=== PATIENT | female | born 2000 | race Caucasian/White ===

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

== ENCOUNTER → 2018-01-02 05:42 | Observation (INO) ==
--- NOTE | 2018-01-02 04:03 | OB/GYN Progress Note ---
Date of Encounter: 01/02/18 Time of Encounter: 04:00 - Assessment and Plan (1) 37 weeks gestation of Current Visit: Yes Status: Acute admitted for observation for labor evaluation (2) NST (non-stress test) reactive Current Visit: No Status: Acute baseline 125 bpm moderate variability +15x15 accels no decels noted. Occasional contractions noted. Cat. 1 tracing. Subjective - Subjective Principal diagnosis: contractions in third trimester Interval history: Patient is a 17 y/o at 37w3d presents to labor and delivery with complaints of contractions since yesterday around 1700. Patient reports contractions to be about 5 min apart. Patient denies LOF or VB. Patient reports +FM. Patient also reports swelling in feet and hands. Antepartum ROS: movement normal, contractions, no loss of fluid, no vaginal bleeding Objective - Vital Signs Vital Signs: Intake and Output 01/01/18 01/01/18 01/02/18 15:59 23:59 07:59 Other: Weight 94.4 kg Patient Weight 01/02/18 23:59 Weight 94.4 kg - Exam FHR: auscultation normal, category 1 FHR comments: 125 bpm moderate variability +15x15 accels no decels noted. Cat. 1 tracing Auscultation: bilateral: normal Abdomen: Present: normal appearance, soft, gravid Uterus: Present: normal, firm Cervical dilation: 2 Cervix effacement: 70 station: -2 Comments: SVE per RN.
[2018-01-02 04:24] LABS: Amphetamine Screen,Urine Negative ng/mL (Cutoff=1000); Barbiturate Screen,Urine Negative ng/mL (Cutoff=200); Benzodiazepines Screen,Urine Negative ng/mL (Cutoff=200); Cannabinoid Screen,Urine Positive ng/mL (Cutoff = 50); Cocaine Screen,Urine Negative ng/mL (Cutoff= 300); Opiate Screen,Urine Negative ng/mL (Cutoff=300); Phencyclidine Screen,Urine Negative ng/mL (Cutoff=25)
== END | disposition home or self-care (01) ==
LOC: 1NENULAB
PROVIDERS: ADMIT Advanced Practice Midwife; ATTEND Advanced Practice Midwife

== ENCOUNTER 2018-01-06 03:36 | Inpatient (IN) ==
[~2018-01-06 03:36] MED LIST changes: +Famotidine 20 MG/2 ML VIAL IVP PRN; +Metoclopramide 10 MG/2 ML VIAL IVP PRN; +Naloxone 0.4 MG/ML INJ IVP PRN; +Ondansetron 4 MG/2 ML VIAL IVP PRN; -Ringers Solution, Lactated 1,000 ML ONE
[2018-01-06] MEDS ORDERED: Oxytocin 20 units/ LR 1000 mL 20 UNIT/1,000 ML BAG IVC SCH ×2 (03:45→09:48)
[2018-01-06] MEDS ORDERED: Ringers Solution, Lactated 1,000 ML IVC SCH (03:45)
[2018-01-06 03:53] LABS: Basophils % 0.3 %; Eosinophils # 0.1 K/mcL (0.0-0.6); Eosinophils % 0.7 %; Hematocrit 34.1 % (35.3-44.9); Hemoglobin 11.9 g/dL (11.5-15.4); Immature Granulocytes % 0.7 % (0-4); Lymphocytes # 2.5 K/mcL (0.6-4.6); Lymphocytes % 24.2 %; Mean Corpuscular HGB Conc 34.9 g/dL (31.6-35.5); Mean Corpuscular Hemoglobin 31.3 pg (28.0-33.3); Mean Corpuscular Volume 89.7 fL (83.0-100.0); Mean Platelet Volume 13.1 fL (9.4-12.4); Monocytes # 0.8 K/mcL (0.0-1.3); Monocytes % 7.5 %; Neutrophils # 6.9 K/mcL (1.6-8.9); Platelet Count 113 K/mcL (140-400); Red Cell Distribution Width 13.2 % (11.5-14.5); Segmented Neutrophils % 66.6 %
[2018-01-06 04:23] LABS: Amphetamine Screen,Urine Negative ng/mL (Cutoff=1000); Barbiturate Screen,Urine Negative ng/mL (Cutoff=200); Benzodiazepines Screen,Urine Negative ng/mL (Cutoff=200); Cannabinoid Screen,Urine Positive ng/mL (Cutoff = 50); Cocaine Screen,Urine Negative ng/mL (Cutoff= 300); Opiate Screen,Urine Negative ng/mL (Cutoff=300); Phencyclidine Screen,Urine Negative ng/mL (Cutoff=25)
[2018-01-06] MEDS: *HR* Nalbuphine 10 MG/ML AMPUL IVP PRN ×2 (04:48→06:53)
--- NOTE | 2018-01-06 06:15 | Anesthesia Evaluation PreOp ---
Date of Encounter: 01/06/18 Time of Encounter: 06:03 - Past History Planned Operation: labor epidural Cardiac History: Denies any Significant Hx Pulmonary History: Denies Any Significant HX HELIUM ARC WELDER History: Denies Any Significant HX Other Medical History: GERD, Other (diet-controlled gestational diabetes. Reports some "clotting disorder" , not sure what type, that she was prescribed baby ASA daily. Was diagnosed since last . was not aware of disorder at last /delivery. No complications during previous delivery. Hasn't taken baby ASA for "I don't know how long" .) Anesthesia History: No Prior Anesthetic Complications (has never had general anesthesia.No FHAP. Had previous epidural without complications.) : Yes Alcohol Use: none Drug use: none Medications and Allergies Pnv with Ca,No.72/Iron,Carb/FA [ Plus Iron Tablet] 1 each PO DAILY 01/06 [History] Aspirin 81 mg PO DAILY #30 tab.chew 07/19/17 [Rx] 3 Allergy/AdvReac Type Severity Reaction Status Date / Time No Known Allergies Allergy Verified 01/06/18 03:18 - Meds/Allergy Pre-op Review Medications Reviewed: Yes Allergies Reviewed: Yes Beta Blockers on Current Med List: No Anesthesia Results - Labs 01/06/18 03:40 Anesthesia Exam 109/62, 85, 16. FHTs 130s. Height: 5'2" Weight: 90 kg NPO (# of Hours): 0100 solids. Pain Scale: 7 Pain Scale Used: Numeric (1 - 10) - HEENT Pupil (Motor): Pupils equal, EOMI Mallampati: III Teeth: Normal Oral Opening: Greater than 3 - HELIUM ARC WELDER LOC: Oriented HELIUM ARC WELDER Motor: Normal RUE, Normal LUE, Normal RLE, Normal LLE, Normal Face HELIUM ARC WELDER Sensory: Normal: RUE, LUE, RLE, LLE, Face - Cardiac Rhythm: Regular - Pulmonary Breath Sounds: bilateral Clear Respiratory Effort: Symmetrical Anesthesia Assess/Plan ASA Score: 3 Modified Benjamín Scale for Level of Consciousness: Cooperative, oriented, and tranquil Anesthetic Plan: Regional Monitoring Plan: Standard Monitors Recovery Plan: PACU
[2018-01-06] MEDS ORDERED: Bupivacaine-MPF 0.25% 10 ML VIAL EP ONE (06:19)
[2018-01-06] MEDS ORDERED: *HR* FentaNYL (PF) 100 MCG/2 ML VIAL EP ONE (06:19)
[2018-01-06] MEDS ORDERED: Epidural Premix (fent/bupiv) 110 ML EP SCH (06:30)
--- NOTE | 2018-01-06 07:17 | OB/GYN History & Physical ---
Date of Encounter: 01/06/18 Time of Encounter: 07:12 Assessment and Plan (1) Spontaneous rupture of amniotic membranes Current visit: Yes Status: Acute Admit for labor Augment with pitocin Epidural when requested. Anticipate . (2) 38 weeks gestation of Current visit: No Status: Acute (3) MTHFR mutation Current visit: Yes Status: Acute SW consult (4) Marijuana use in remission Current visit: Yes Status: Acute (5) GDM, class A1 Current visit: Yes Status: Acute Pt reports good control with diet, EFW this week 7lbs History of Present Illness Chief complaint: SROM HPI: Ms. Martinez is a 17 year old female at 38 weeks gestation who presented to L&D after SROM at 0200 this am. She denies any other complaints. Good FM. This has been complicated by MTHFR for which she intermittently takes baby ASA. Other complications include GDMA1, marijuana use, and an accessory lobe placenta. Blood type B+ Rubella immune Serologies negative GBS negative Past Med Surg Social Fam HX - Past Medical History Medical history: GERD Additional medical history: clotting disorder Psychiatric history: anxiety, depression - Past Surgical History Surgical History: no surgical history - Social History Smoking Status: Never smoker Smokeless Tobacco Status: No Alcohol use: none Drug use: none - Family History Father Adopted: No Living Status: Still Living Hx Family Cardiac Disorders: Yes (HTN) Hx Family Respiratory Disorders: No Hx Family Cancer: No Hx Family GI Disorders: No Hx Family Endocrine Disorder: No Hx Family Neuromuscular Disorders: No Hx Family Neurologic Disorders: No Hx Family HEENT Disorders: No Hx Family Autoimmune Disorders: No Obstetrical History - Pregnancies : 2 Para: 1 Term: 1 : 0 Ab's: 0 Livin Medications and Allergies Pnv with Ca,No.72/Iron,Carb/FA [ Plus Iron Tablet] 1 each PO DAILY 01/06 [History] Aspirin 81 mg PO DAILY #30 tab.chew 07/19/17 [Rx] 3 Allergy/AdvReac Type Severity Reaction Status Date / Time No Known Allergies Allergy Verified 01/06/18 03:18 Review of System OB All systems PM: reviewed and no additional remarkable complaints except as stated Exam - Constitutional Constitutional: well developed, well nourished, moderate distress - HEENT HEENT: Mucus Membranes Moist - Lungs Respiratory exam: CTAB - Cardiovascular Cardiovascular exam: RRR, +S1, +S2 - Abdomen Abdomen: Present: gravid (EFW 7lbs by US this week), non tender - Extremities Extremities exam: normal inspection - Vulva Vulva: bilateral: normal - Anus/Rectum Anus/Rectum: Present: normal perianal skin Results Result Diagrams: 01/06/18 03:40 Abnormal lab results RBC 3.80 M/mcL (3.82-4.97) L 01/06/18 03:40 Hct 34.1 % (35.3-44.9) L 01/06/18 03:40 Plt Count 113 K/mcL (140-400) L 01/06/18 03:40 MPV 13.1 fL (9.4-12.4) H 01/06/18 03:40 U Marijuana (THC) Screen Positive ng/mL (Cutoff = 50) H 01/06/18 03:40 All other labs normal. - VTE Reasons for not Prescribing Prophylaxis: Treatment not Indicated - Low risk for VTE
[2018-01-06] MEDS ORDERED: Lidocaine -MPF 1% 5 ML AMPUL ONE (07:30)
[2018-01-06] MEDS ORDERED: Epidural Premix (fent/bupiv) 110 ML EP ONE (07:31)
--- NOTE | 2018-01-06 07:47 | Anesthesia Procedures ---
Date of Encounter: 01/06/18 Time of Encounter: 07:45 Procedures: Anesthesia - Epidural/Spinal Patient ID/Chart reviewed: Yes Patient examined: Yes OB Eval: Gestational age: term OB Eval: : 2 OB Eval: Hx Para: 1 OB Eval: Contractions: Non-stressed pattern Consent Obtained: Yes Supplemental Oxygen: None/Room Air Site Prep: Aseptic Technique, Sterile prep and drape, 0.5% Chlorhexidine/Alcohol Patient position: upright Local Anesthetic: Lidocaine 1% Amount of Local Anesthetic used: 2 Touhy Needle Gauge: 18 Touhy Needle Depth (cm): 9 Catheter Depth at Skin (cm): 15 Test Dose (1.5% Lido + Epi): Volume given (mls): 3 Test Dose Result: Negative Loading Dose: Other: 10ml from solution Loading Dose Administered: Thru Catheter Infusion Med: 0.125% Bupivacaine w/ 2 mcg/ml Fentanyl Infusion Rate (mls/hr): [address]: Tegaderm, Tape Interspace Used: L3-L4 Loss of Resistance (MARY CARMEN): Yes (saline) Blood: No CSF: No Paresthesia: Yes (with immediate resolution (during cath placement)) Procedure: vss though out procedure, FHR stable per RN's, all per Koby WILLS.
--- NOTE | 2018-01-06 09:29 | OB/GYN Procedure Note ---
Delivery - Delivery Date: 01/06/18 Provider: Yesi Murcia Intrapartum events: none Delivery induction: none Delivery augmentation: pitocin Delivery monitor: external FHT, external uterine Anesthesia: epidural Quantitated Blood Loss: 600 - (s) Infant A Delivery Date: 01/06/18 Delivery Time: 08:53 Presentation: vertex Position: OA Route of delivery: Gender: Male Viability: Viable Pounds: 6 Ounces: 6 Weight Gram: 2.905 kg at 1 minute: 9 at 5 mins: 9 Shoulder Dystocia: not encountered Specimens collected: cord blood Placenta: spontaneous (Manual exploration by Dr. Shah ) - Repair Episiotomy: none Laceration Description: None - Complications Delivery complications: none Delivery comments: Spontaneous rupture of membranes with Pitocin augmentation. Progressed to complete. Maternal bearing down efforts to of liveborn male. No nuchal cord or shoulder dystocia encountered. Vigorous infant placed on maternal abdomen Apgars 9/9. Placenta delivered spontaneously with trailing membranes but no accessory lobe noted, Pitocin started per policy and fundus massage, manual exploration performed by Dr. Shah. Perineum intact. EBL 600ml. - Disposition Mom disposition: stable in LDR disposition: stable in LDR - Comments Comments: I was called to evaluate for accessory placental lobe. Minimal uterine bleeding. Uterus firmly contracted. Able to only palpate anterior and posterior lower uterine segment due to the uterine contraction. No palpable placental fragements. Placenta examined with membranes and intact. Minimal bleeding.Patient will be placed on antibiotics for exploration
[2018-01-06] MEDS ORDERED: Acetaminophen 325 MG TABLET PO PRN (09:48)
[2018-01-06] MEDS ORDERED: Benzocaine/Menthol 56 GM AEROSOL SPRAY TP PRN (09:48)
[2018-01-06] MEDS ORDERED: CeFAZolin Premix DUPLEX 2,000 MG/50 ML BAG IVPB ONE ×2 (09:48→11:00)
[2018-01-06] MEDS ORDERED: Oxytocin 20 units/ LR 1000 mL 20 UNIT/1,000 ML BAG IVC ONE (11:38)
[2018-01-06] MEDS: Ibuprofen 600 MG TABLET PO PRN ×2 (13:39→20:35)
[2018-01-06] MEDS: ceFAZolin 1,000 MG in Water for inj. (sterile) 20 ML 10 ML IVPB SCH (17:20)
[2018-01-07] MEDS: ceFAZolin 1,000 MG in Water for inj. (sterile) 20 ML 10 ML IVPB SCH ×2 (00:13→09:29)
[2018-01-07 04:45] LABS: Hematocrit 29.5 % (35.3-44.9); Mean Corpuscular Volume 89.9 fL (83.0-100.0); Red Blood Count 3.28 M/mcL (3.82-4.97); Red Cell Distribution Width 13.2 % (11.5-14.5)
[2018-01-07 04:47] LABS: Basophils % 0.1 %; Eosinophils # 0.2 K/mcL (0.0-0.6); Eosinophils % 1.6 %; Hemoglobin 10.1 g/dL (11.5-15.4); Immature Granulocytes % 0.8 % (0-4); Immature Platelets 15.7 % (1.1-6.1); Lymphocytes # 2.6 K/mcL (0.6-4.6); Lymphocytes % 26.9 %; Mean Corpuscular HGB Conc 34.2 g/dL (31.6-35.5); Mean Corpuscular Hemoglobin 30.8 pg (28.0-33.3); Mean Platelet Volume 13.5 fL (9.4-12.4); Monocytes # 0.8 K/mcL (0.0-1.3); Monocytes % 7.8 %; Segmented Neutrophils % 62.8 %
[2018-01-07 05:07] LABS: Neutrophils # 6.2 K/mcL (1.6-8.9); Platelet Count 88 K/mcL (140-400)
[2018-01-07] MEDS: Ibuprofen 600 MG TABLET PO PRN (07:01)
[2018-01-07 08:25] VITALS: BP 114/79
[2018-01-07] MEDS ORDERED: Prenatal Vit/FA 1 EACH TABLET PO SCH (09:00)
--- NOTE | 2018-01-07 09:10 | Discharge Summary ---
Date of Encounter: 01/07/18 Time of Encounter: 09:07 - Discharge Diagnosis (1) Vaginal delivery Priority: Primary Status: Acute Comments: Continue routine care discharge home today follow up with Dr. Shah - Discharge Medications Prescriptions: Ibuprofen [Motrin] 600 mg PO Q6HR PRN #60 tablet PRN Reason: Cramping Home Medications: Pnv with Ca,No.72/Iron,Carb/FA [ Plus Iron Tablet] 1 each PO DAILY 01/06 [History] Benzocaine/Menthol [place] [Dermoplast [place]] 1 appl TP QID PRN aerosol 01/07/18 [Rx] Ibuprofen [Motrin] 600 mg PO Q6HR PRN #60 tablet 01/07/18 [Rx] Allergies/Adverse Reactions: 3 Allergy/AdvReac Type Severity Reaction Status Date / Time No Known Allergies Allergy Verified 01/06/18 03:18 Data Procedures and tests throughout hospitalization: Laboratory Tests 01/06/18 01/06/18 01/07/18 03:40 03:40 04:07 WBC 10.3 9.8 RBC 3.80 L 3.28 L Hgb 11.9 10.1 L D Hct 34.1 L 29.5 L MCV 89.7 89.9 MCH 31.3 30.8 MCHC 34.9 34.2 RDW 13.2 13.2 Plt Count 113 L 88 L MPV 13.1 H 13.5 H Immature Gran % 0.7 0.8 Seg Neutrophils % 66.6 62.8 Lymphocytes % 24.2 26.9 Monocytes % 7.5 7.8 Eosinophils % 0.7 1.6 Basophils % 0.3 0.1 Neutrophils # 6.9 6.2 Lymphocytes # 2.5 2.6 Monocytes # 0.8 0.8 Eosinophils # 0.1 0.2 Basophils # 0.0 0.0 Immature Plt Fraction 15.7 H Urine Opiates Screen Negative Ur Barbiturates Screen Negative Ur Phencyclidine Scrn Negative Ur Amphetamines Screen Negative U Benzodiazepines Scrn Negative Urine Cocaine Screen Negative U Marijuana (THC) Screen Positive H Ur Drug Screen Interp See Below Labs on day of discharge: Labs from last 24 hours 01/07/18 04:07 WBC 9.8 RBC 3.28 L Hgb 10.1 L D Hct 29.5 L MCV 89.9 MCH 30.8 MCHC 34.2 RDW 13.2 Plt Count 88 L MPV 13.5 H Immature Gran % 0.8 Seg Neutrophils % 62.8 Lymphocytes % 26.9 Monocytes % 7.8 Eosinophils % 1.6 Basophils % 0.1 Neutrophils # 6.2 Lymphocytes # 2.6 Monocytes # 0.8 Eosinophils # 0.2 Basophils # 0.0 Immature Plt Fraction 15.7 H Date of admission: 01/06/18 03:36 Primary care physician: PCP NONE Consults: 01/06/18 09:48 Consult to Manager Application Development [CONS] Routine Comment: Vaginal delivery, consult needed Discharging clinician: Mirian Thomson Anticipated date of discharge: 01/07/18 - Patient Status Disposition: Home, Self-Care Condition: Good Functional capacity at discharge: independent ambulation - Discharge Instructions Follow Up With: NONE,PCP [Primary Care Provider] - Milena Shah DO [Partnered Physician] - - Diet and Activity Activity: increase activity as tolerated Diet: regular diet Hospital Course Reason for admission: induction of labor Delivery: Episiotomy: none Other procedures: none Discharge diagnosis: IUP at term delivered baby: male (bottle feeding) Time Attestation: Total time spent providing and/or coordinating discharge services: Time Spent: Less than 30 minutes Exam - Constitutional Vitals: Temp Pulse Resp BP Pulse Ox 98.1 F 76 16 114/79 100 01/07/18 07:30 01/07/18 07:30 01/07/18 07:30 01/07/18 07:30 01/07/18 03:12 General appearance IM: A&O X 3, pleasant, answers questions appropriately - Respiratory Respiratory exam: Present: CTAB - Cardiovascular Cardiovascular exam IM: Present: RRR, +S1, +S2 - GI/Abdominal GI/Abdominal exam IM: normal bowel sounds - Uterine Tone: Firm Uterus Position: 1 Finger Below Umbilicus, Midline - Extremities Exam Extremities exam IM: Present: full ROM, normal capillary refill, normal inspection - Neurological Exam Neurological exam: alert, oriented X3, reflexes normal
== END 2018-01-07 14:15 | disposition home or self-care (01) | DRG 560 ==
LOC: 1NENULAB → 1NENUOBS 12:03
PROVIDERS: ADMIT Registered Nurse; ATTEND Registered Nurse